=== PATIENT | male | born 1995 | race Hispanic/Latino ===

== ENCOUNTER 2020-09-23 19:24 | Emergency (ER) | payer SELFPAY ==
[2020-09-23] MEDS ORDERED: Ibuprofen 800 MG TAB ONE (21:07)
== END 2020-09-23 21:57 | disposition home or self-care (01) ==
LOC: ERS 19:24
DX: H60.92 Unspecified otitis externa, left ear (principal); H66.92 Otitis media, unspecified, left ear; F17.210 Nicotine dependence, cigarettes, uncomplicated
CPT/HCPCS: 99282

== ENCOUNTER 2020-10-08 14:53 | Emergency (ER) | payer SELFPAY ==
[2020-10-08 15:27] LABS: #Basophils 0.1 thou/uL (0.0-0.2); #Eosinphils 0.2 thou/uL (0.0-0.7); #Lymphocytes 2.7 thou/uL (1.20-3.40); #Monocytes 0.9 thou/uL (0.11-0.59); #Neutrophils 8.1 thou/uL (1.40-6.50); %Eosinophils 1.9 % (0.0-10.0); %Lymphocytes 22.7 % (21.0-51.0); %Monocytes 7.5 % (0.0-10.0); Hemoglobin 16.4 g/dL (14.0-18.0); Mean Corpuscular HGB CONC 32.6 g/dL (32.0-36.0); Mean Corpuscular Volume 85.9 fL (78.0-98.0); Mean Platelet Volume 7.7 fL (7.4-10.4); Platelet Count 252 thou/uL (130-400); RBC Distribution Width 12.8 % (11.5-14.5); Red Blood Cell (RBC) Count 5.84 mill/uL (4.70-6.10)
[2020-10-08 15:55] LABS: ALT (SGPT) 52 U/L (8-55); AST (SGOT) 25 U/L (5-34); Albumin 3.9 g/dL (3.5-5.0); Alkaline Phosphatase 112 U/L (40-110); Anion Gap 10 mmol/L (10-20); BUN (Urea Nitrogen) 8 mg/dL (8.9-20.6); Bilirubin, Total 0.3 mg/dL (0.2-1.2); Calc. Creatinine Clearance 0 mL/min (70-130); Calcium 8.9 mg/dL (7.8-10.44); Carbon Dioxide 33 mmol/L (22-29); Chloride 101 mmol/L (98-107); Globulin 3.6 g/dL (2.4-3.5); Glucose 127 mg/dL (70-105); Potassium 3.7 mmol/L (3.5-5.1); Protein, Total 7.5 g/dL (6.0-8.3); Sodium 140 mmol/L (136-145)
--- NOTE | 2020-10-08 16:12 | RAD ---
PORTABLE CHEST: 10/08/20 HISTORY: Syncopal episode with fall. Heart size and mediastinum are within normal limits. The lungs are clear of any infiltrates. No pneum othorax or rib fractures. IMPRESSION: No active intrathoracic disease. POS: [facility]
--- NOTE | 2020-10-08 19:45 | CT ---
CT HEAD WITHOUT CONTRAST: 10/08/20 INDICATIONS: Syncopal episode. No comparison. FINDINGS: The ventricles have normal size and position. There is no evidence of intracranial mass or hemorrhage . No edema or infarct. The paranasal sinuses are clear. There is mucosal edema seen in left mastoid air cells. Middle ears are clear bilaterally. IMPRESSION: 1. Unremarkable CT brain. 2. Mucosal edema in the left mastoid air cells. Correlate clinically. POS: [facility]
== END 2020-10-08 16:34 | disposition home or self-care (01) ==
LOC: ERS 14:53
DX: R55 Syncope and collapse (principal); F17.210 Nicotine dependence, cigarettes, uncomplicated
CPT/HCPCS: 36415; 70450; 71045; 80053; 84484; 85025; 93005

== ENCOUNTER 2024-02-29 10:59 | Emergency (ER) | payer SELFPAY | END 2024-02-29 12:13 | disposition home or self-care (01) | LOC: ERS 10:59 | DX: H60.91 Unspecified otitis externa, right ear (principal); F17.210 Nicotine dependence, cigarettes, uncomplicated | CPT/HCPCS: 99282 ==